=== PATIENT | male | born 1940 | race Caucasian/White ===

== ENCOUNTER 2025-01-21 08:10 | Inpatient (IN) | payer MEDICARE ==
[~2025-01-21] VITALS: Ht 175.3 cm; Wt 93.1 kg
[2025-01-21 08:42] LABS: BASOPHILS 1.2 % (0-2); EOSINOPHILS 8.8 % (0-6); HEMATOCRIT 40.5 % (35.0-50.0); HEMOGLOBIN 14.2 g/dL (12.0-18.0); LYMPHOCYTES 23.2 % (24-44); MCH 31.8 (27-36); MCV 90.8 fl (81-99); MONOCYTES 6.4 % (0-12); NEUTROPHILS 60.4 % (39-80); PLATELET COUNT 146 K/uL (140-440); RBC 4.46 M/ul (4.3-5.7); RDW 13.9 (10.5-15.0)
[2025-01-21 09:02] LABS: ALBUMIN 3.7 g/dL (3.4-5.0); ALBUMIN/GLOBULIN RATIO 0.97 (1.1-2.4); ANION GAP 10.2 (7-21); BILIRUBIN, TOTAL 0.7 mg/dL (0.2-1.0); BUN/CREATININE RATIO 16.23 (6.0-28.6); CALCIUM 8.8 mg/dL (8.5-10.1); CREATININE, SERUM 1.17 mg/dL (0.70-1.30); POTASSIUM 4.2 mmol/L (3.5-5.1); PROTEIN, TOTAL 7.5 g/dL (6.4-8.2)
[2025-01-21] MEDS ORDERED: CARVEDILOL12.5 MG PO (09:04)
[2025-01-21] MEDS ORDERED: AMLODIPINE BESYL5 MG PO (09:04)
[2025-01-21] MEDS ORDERED: WIXELA 250-501 EACH INH (09:04)
[2025-01-21] MEDS ORDERED: FINASTERIDE5 MG PO (09:04)
[2025-01-21] MEDS ORDERED: ATORVASTATIN CA80 MG PO (09:04)
[2025-01-21] MEDS ORDERED: bisacodyL 10 MG SUPP PR PRN (11:30)
[2025-01-21] MEDS ORDERED: ACETAMINOPHEN 325 MG TAB PO PRN (11:30)
[2025-01-21] MEDS ORDERED: ondansetron HCL 4 MG/2 ML VIAL IV PRN (11:30)
[2025-01-21] MEDS ORDERED: GLUCAGON,HUMAN RECOMBINANT 1 MG/ML VIAL SUB-Q PRN (11:30)
[2025-01-21] MEDS ORDERED: DEXTROSE 5% 1,000 ML IV PRN (11:30)
[2025-01-21] MEDS ORDERED: IBLOOD GLUCOSE TEST STRIP 1 EA TEST XX PRN (11:30)
[2025-01-21] MEDS ORDERED: DEXTROSE 50% 50 ML SYR IV PRN ×2 (11:30)
[2025-01-21] MEDS ORDERED: PHARMACY RENAL DOSE ADJUSTMENT 1 DOSE MISC PO SCH (12:00)
[2025-01-21] MEDS ORDERED: INSULIN LISPRO 100 UNIT/ML ML SUB-Q SCH (12:00)
[2025-01-21] MEDS ORDERED: IBLOOD GLUCOSE TEST STRIP 1 EA TEST VI SCH (12:00)
[2025-01-21 12:28] LABS: CHOLESTEROL/HDL RATIO 2.3; TSH, 3RD GENERATION 2.228 uIU/mL (0.358-3.740)
[2025-01-21 12:31] VITALS: BP 179/87
--- NOTE | 2025-01-21 13:26 | NUR ---
Patient arrived to the medical floor. Patient awake, expressive aphasia noted. Patient able to walk to unit bed, he is a bit unsteady on feet. Right sided weakness noted. Patient's at bedside. Oriented patient to room and call light. Bed alarm intact.
--- NOTE | 2025-01-21 13:59 | NUR ---
THIS RN PRESENT TO ASSIST WITH TUG BOAT CAPTAIN WITH BUBBLE STUDY. PT TOLERATED PROCEDURE WELL. PRESENT AT BEDSIDE. NO OTHER NEEDS, TUG BOAT CAPTAIN REMAINS IN ROOM TO COMPLETE REMAINING PROCEDURE.
[2025-01-21 14:32] VITALS: BP 179/87
--- NOTE | 2025-01-21 14:40 | NUR ---
WORKING WITH PT. SPOUSE, HERMILO, IN ROOM. PATIENT LIVES WITH IN SINGLE LEVEL HOME WITH 1 STEP TO GET INSIDE. HE HAS ONLY A NEBULIZER FOR DME. PRIOR TO LAST NIGHT, HE WAS ABLE TO DRIVE AND JUST DROVE APPROXIMATELY [address] WITH HIS . HERMILO DENIES ANY FINANCIAL ISSUES. DISCUSSED DC PLANNING AND WILL ESTABLISH PLAN BASED ON FURTHER EVALS TO BE COMPLETED. VERBALIZES UNDERSTANDING. CURRENTLY PLANNING TO TAKE PATIENT HOME WHEN MEDICALLY CLEARED, BUT WILL NEED THERAPIES TO EVAL AND RECOMMEND WHAT PATIENT WILL NEED. PCP IS DR. BENNY SEGUNDO AT [facility] PREFERRED PHARMACY IS [facility] IN [facility] IN [place], [place].
[2025-01-21 14:54] VITALS: BP 173/81
[2025-01-21] MEDS ORDERED: CLOPIDOGREL BISULFATE 75 MG TAB PO SCH (14:57)
[2025-01-21] MEDS ORDERED: ASPIRIN 81 MG CHEW PO SCH (14:58)
[2025-01-21] MEDS ORDERED: MELATONIN10 M2 PO (16:38)
--- NOTE | 2025-01-21 16:39 | NUR ---
medications reconciled using pharmacy records and patient/patient's interview
[2025-01-21] MEDS ORDERED: ALBUTEROL SULFATE 0.083% 3 ML VIAL INH PRN (17:30)
--- NOTE | 2025-01-21 19:05 | NUR ---
REPORT RECEIVED FROM ROBERT ALBERTO. pt RESTING IN THE BED. BOARD UPDATED. pt DENIES ANY OTHER NEEDS AT THIS TIME. CALL LIGHT WITHIN REACH.
[2025-01-21] MEDS ORDERED: BUDESONIDE 0.5 MG/2 ML VIAL INH SCH (20:00)
[2025-01-21] MEDS ORDERED: MELATONIN 3 MG TAB PO PRN (21:00)
[2025-01-21] MEDS ORDERED: ATORVASTATIN 40 MG TAB PO SCH (21:00)
[2025-01-21 21:20] VITALS: BP 172/82
--- NOTE | 2025-01-21 21:20 | NUR ---
ASSESSMENT AND VITAL SIGNS DONE. pt A&O TO SELF AND DATE. PUPILS ARE PIN-POINT AND SLOW TO RESPOND. TELE #6 ON. BLOOD SUGAR CHECK DONE WITH A RESULTS OF 101. NO SS INSULIN NEEDED. SCHEDULED MEDS ADMISTERED. pt DENIES ANY OTHER NEEDS AT THIS TIME. CALL LIGHT WITHIN REACH.
[2025-01-21 21:22] VITALS: BP 172/82
--- NOTE | 2025-01-21 21:54 | NUR ---
COUCH SET UP FOR BED FOR HERMILO SHE PLANS TO STAY THE NIGHT WITH pt. ROOM TIDIED AND THIS RN ASSISTED PRIMARY RN WITH COLLECTING VS AND I&O'S. pt THEN AMBULATED SBA WITH THIS RN AND MADE ONE LAP IN HALLWAY, STEADY ON FEET W/O ASSISTIVE DEVICES. pt BRUSHED TEETH, VOIDED 425MLS AND BACK IN BED, WARM BLANKET PROVIDED. BED ALARM RESUMED AND CALL LIGHT IN REACH. OTHER FAMILY MEMBERS PREPARING TO LEAVE FOR THE EVENING. PRN MELATONIN GIVEN PER pt/ REQUEST, NO ADDITIONAL NEEDS OR CONCERNS. CALL LIGHT IN REACH.
--- NOTE | 2025-01-21 23:49 | NUR ---
pt RESTING IN THE BED WITH EYES CLOSED. RR EVEN AND UNLABORED. CALL LIGHT WITHIN REACH. NO OTHER NEEDS AT THIS TIME.
[2025-01-22] VITALS (11 sets, daily range): BP systolic 150–176; BP diastolic 78–90
--- NOTE | 2025-01-22 00:35 | NUR ---
pt RESTING IN THE BED WITH EYES CLOSED. RR EVEN AND UNLABORED. CALL LIGHT WITHIN REACH.
--- NOTE | 2025-01-22 01:49 | NUR ---
IN RM TO DO VITAL SIGNS. pt DENIES ANY NEEDS AT THIS TIME. CALL LIGHT WITHIN REACH.
--- NOTE | 2025-01-22 04:21 | NUR ---
IN RM TO CHECK ON pt. pt REQUEST TO GO TO THE BR. SBA. pt REQUESTED TO GO ON A WALK. pt WALKED 4 LAPS AROUND THE MED/SURG FLOOR. pt DENIES ANY OTHER NEEDS AT THIS TIME. CALL LIGHT WITHIN REACH. BED ALARM ON.
[2025-01-22 05:25] LABS: BASOPHILS 0.8 % (0-2); EOSINOPHILS 7.2 % (0-6); HEMATOCRIT 38.7 % (35.0-50.0); HEMOGLOBIN 13.3 g/dL (12.0-18.0); LYMPHOCYTES 25.1 % (24-44); MCH 31.5 (27-36); MCHC 34.4 g/dl (30-36); MCV 91.6 fl (81-99); MONOCYTES 7.6 % (0-12); NEUTROPHILS 59.3 % (39-80); PLATELET COUNT 135 K/uL (140-440); RBC 4.23 M/ul (4.3-5.7); RDW 13.9 (10.5-15.0)
[2025-01-22 05:44] LABS: ALBUMIN 3.4 g/dL (3.4-5.0); ALBUMIN/GLOBULIN RATIO 0.97 (1.1-2.4); ANION GAP 10.7 (7-21); BILIRUBIN, TOTAL 0.7 mg/dL (0.2-1.0); CALCIUM 8.8 mg/dL (8.5-10.1); MAGNESIUM 1.9 mg/dL (1.8-2.4); POTASSIUM 3.7 mmol/L (3.5-5.1); PROTEIN, TOTAL 6.9 g/dL (6.4-8.2)
--- NOTE | 2025-01-22 07:05 | NUR ---
REPORT RECEIVED FROM DOLLY HOLM. PATIENT RESTING IN BED AWAKE AND ALERT WITH AT BEDSIDE. BOTH REQUESTING COFFEE - PROVIDED. NO OTHER REQUESTS, CALL LIGHT IN REACH.
--- NOTE | 2025-01-22 08:14 | EKG ---
[facility] [address] [place], [place] [address] Signed Sinus bradycardia with 1st degree AV block Left ventricular hypertrophy with QRS widening ( R in aVL , Bettendorf product ) Nonspecific ST and T wave abnormality Abnormal ECG No previous ECGs available Confirmed by Demetrice Sim DO ([id number]) on 01/22/2025 8:14:13 AM Electronically Signed By: DEMETRICE SIM DO 01/22/25 0814 PATIENT NAME: ALYSE SU Electrocardiogram DATE OF : 40 PHYSICIAN: DEMETRICE SIM DO REPORT #: [id number] REPORT IS CONFIDENTIAL AND NOT TO BE RELEASED WITHOUT AUTHORIZATION
--- NOTE | 2025-01-22 09:10 | NUR ---
INTO SEE PATIENT. FAMILY AT BEDSIDE. PATIENT SAYS HE HAS HAD GREAT CARE HERE SO FAR. PATIENT WILL GO HOME WITH AT TIME OF DISCHARGE. NO FUTHER CM NEEDS AT THIS TIME OR QUESTIONS.
--- NOTE | 2025-01-22 09:25 | NUR ---
PRESENT IN ROOM.
--- NOTE | 2025-01-22 09:49 | NUR ---
PATIENT IS UP AND AMBULATING IN THE HALLS WITH REYES MEJIA. PATIENT IS STEADY ON HIS FEET AND WALKING AT A BRISK PACE.
--- NOTE | 2025-01-22 11:22 | NUR ---
ASSESSMENT COMPLETE, PATIENT RESTING IN RECLINER WITH MULTIPLE FAMILY MEMBERS PRESENT. NIH 2 FOR SPEECH PATTERN/EXPRESSIVE APHASIA, PATIENT AND PATIENT FAMILY BOTH FEEL PATIENT'S SPEECH IS IMPROVING. NO WEAKNESS NOTED TO PATIENT'S ARMS OR LEGS. PATIENT HAS BEEN AMBULATING FREQUENTLY THIS MORNING WITH NURSING STAFF AND PHYSICAL THERAPY WITH A STEADY GAIT. PATIENT HAS NO REPORTS OF PAIN OR DISCOMFORT. NO REQUESTS. CALL LIGHT AND PERSONAL BELONGINGS IN REACH.
--- NOTE | 2025-01-22 11:36 | NUR ---
AFTER PATIENT WAS DONE IN THE BATHROOM BRUSHING HIS TEETH. GOT CHAIR SET UP FOR HIM TO SIT IN FOR BREAKFAST. FAMILY IN ROOM. BED LINENS CHANGED.
--- NOTE | 2025-01-22 11:45 | NUR ---
UR CLINICAL REVIEW: [facility], MEETS INPT FOR ISCHEMIC STROKE APHASIA, CONFUSION, NIH OF 3, POSITIVE MRI FOR CVA [facility] INPT 01/21/2025 @ 1142 ORDER MATCHES REG AUTHORIZED INPT STAY. AUTH #[id number], REQUESTING CLINICALS, WILL SEND CLINICALS VIA [facility] TODAY. DC PLAN PENDING TREATMENT AND EVAL 01/24/25
--- NOTE | 2025-01-22 13:13 | NUR ---
VISITED DURING SPIRITUAL CARE ROUNDS. PT SUPPORTED BY DAUGHTERS IN ROOM. ALL IN OVERALL GOOD SPIRITS, RELAYED INFORMATION FROM CARE TEAM, EXPRESSED SATISFACTION WITH CARE, HOPE FOR RECOVERY, DETERMINATION, DESIRE FOR WALK AROUND THE HALLS. ALTERATIONS TAILOR PROVIDED SUPPORTIVE PRESENCE, HOSPITALITY, PRAYER, ADVOCATED FOR PT TO RECEIVE WALK WITH NURSING TEAM.
--- NOTE | 2025-01-22 15:42 | NUR ---
PATIENT WALKED THREE LAPS AROUND MED SURG WITH HIS FAMILY. AND FOUR LAPS AFTER LUNCH WITH HIS FAMILY.
--- NOTE | 2025-01-22 17:00 | NUR ---
PATIENT WITH MULTIPLE VISITORS IN THE ROOM, CONVERSES PLEASANTLY WITH THIS RN. EXPRESSIVE APHASIA CONTINUES TO IMPROVE. PATIENT REPORTS FEELING AWARE THAT HIS SPEECH IS GETTING SMOOTHER WELL. PATIENT FAMILY MEMBERS AGREEABLE. NO REQUESTS, CALL LIGHT AND PERSONAL BELONGINGS IN REACH.
[2025-01-22 18:11] LABS: THYROXINE FREE 1.1 ng/dL (0.9-1.7)
--- NOTE | 2025-01-22 19:05 | NUR ---
REPORT RECEIVED FROM TODD ALBERTO. pt WALKING IN THE HALLS WITH HIS FAMILY. NO OTHER NEEDS AT THIS TIME. CALL LIGHT WITHIN REACH.
--- NOTE | 2025-01-22 21:15 | NUR ---
ASSESSMENT AND VITAL SIGNS DONE. FAMILY IN RM. pt A&O X4. pt RESTING IN THE BED. pt HAS SOME DIFFICULTY FINDING WORDS. pt DENIES ANY OTHER NEEDS AT THIS TIME. CALL LIGHT WITHIN REACH. SCHEDULED AND PRN MEDS ADMINISTERED. WATER REFRESHED.
--- NOTE | 2025-01-22 23:30 | NUR ---
pt RESTING IN THE BED WITH EYES CLOSED. RR EVEN AND UNLABORED. CALL LIGHT WITHIN REACH.
[2025-01-23] VITALS (10 sets, daily range): BP systolic 139–164; BP diastolic 88–96
--- NOTE | 2025-01-23 01:24 | NUR ---
pt RESTING IN THE BED WITH EYES CLOSED. RR EVEN AND UNLABORED. CALL LIGHT WITHIN REACH.
--- NOTE | 2025-01-23 03:43 | NUR ---
pt RESTING IN THE BED WITH EYES CLOSED. RR EVEN AND UNLABORED. CALL LIGHT WITHIN REACH.
[2025-01-23 05:24] LABS: EOSINOPHILS 5.8 % (0-6); HEMATOCRIT 40.6 % (35.0-50.0); HEMOGLOBIN 14.1 g/dL (12.0-18.0); LYMPHOCYTES 29.1 % (24-44); MCH 31.6 (27-36); MCHC 34.8 g/dl (30-36); MCV 90.8 fl (81-99); MONOCYTES 8.8 % (0-12); NEUTROPHILS 55.3 % (39-80); PLATELET COUNT 138 K/uL (140-440); RBC 4.47 M/ul (4.3-5.7); RDW 14.1 (10.5-15.0)
--- NOTE | 2025-01-23 05:25 | NUR ---
TERRAZZO JOURNEYMAN OBTAINED VITALS AND I&O. PT STATES NO NEEDS AT THIS TIME. CALL LIGHT WITHIN REACH AND IN ROOM.
[2025-01-23 05:34] LABS: BUN/CREATININE RATIO 19.38 (6.0-28.6); CALCIUM 8.9 mg/dL (8.5-10.1); CREATININE, SERUM 0.98 mg/dL (0.70-1.30); MAGNESIUM 2.1 mg/dL (1.8-2.4)
--- NOTE | 2025-01-23 06:10 | NUR ---
pt SITTING UP TO DRINK SOME COFFEE. ASSESSMENT AND VITAL SIGNS DONE. pt DENIES ANY OTHER NEEDS AT THIS TIME. CALL LIGHT WITHIN REACH.
--- NOTE | 2025-01-23 07:09 | NUR ---
REPORT RECEIVED FROM DOLLY HOLM. PATIENT AWAKE AND ALERT IN THE RECLINER READING AN ARTICLE ON HIS PHONE OUTLOUD PRACTICE. PATIENT REPORTS HE WILL PROBABLY GO FOR A WALK WITH HIS SOON. NO REQUESTS, CALL LIGHT AND PERSONAL BELONGINGS IN REACH.
--- NOTE | 2025-01-23 08:09 | NUR ---
MEDICATION ADMINISTERED, SEE MAR. ASSESSMENT COMPLETE. PATIENT'S EXPRESSIVE APHASIA CONTINUES TO IMPROVE, PATIENT REACHES FOR APPROXIMATELY 4 WORDS DURING A 10-MINUTE CONVERSATION. PATIENT IS IN THE RECLINER READING THE NEWSPAPER ALOUD TO HIS PRACTICE. PATIENT EXPRESSES EXCITEMENT IN GOING HOME TOMORROW, OUTLINES THE FULL PLAN FOR CONTINUING CARE OVER THE NEXT WEEK. FULLY ALERT AND ORIENTED. REYES BURNS ARRIVES TO CHANGE BED LINENS. PATIENT HAS NO REQUESTS, CALL LIGHT AND PERSONAL BELONGINGS IN REACH, PRESENT AT CHAIRSIDE THROUGHOUT AND REYES BURNS REMAINS IN ROOM.
--- NOTE | 2025-01-23 08:45 | NUR ---
PT BED LINENS CHANGED, PT IN CHAIR EATING BREAKFAST, FAMILY PRESENT IN ROOM, PT IN GOOD MOOD, LAUGHING AND TALKING BATHROOM READY FOR SHOWER
--- NOTE | 2025-01-23 09:05 | NUR ---
ASSISTED PATIENT IN WRAPPING HIS IV FOR SHOWER, GOT A FRESH GOWN AND TOWELS. FAMILY IN ROOM, CALL LIGHT WITH IN REACH AND NOTHING ELSE NEEDED AT THIS TIME.
[2025-01-23] MEDS ORDERED: AMLODIPINE BESYLATE 5 MG TAB PO SCH (09:41)
[2025-01-23] MEDS ORDERED: FINASTERIDE 5 MG TAB PO SCH (09:52)
[2025-01-23] MEDS ORDERED: PANTOPRAZOLE SODIUM 40 MG TABEC PO SCH (09:53)
--- NOTE | 2025-01-23 11:30 | NUR ---
CALLED [facility] THEY HAVE A THERAPIST THAT SPECIALIZES IN STROKE REHAB. PATIENT HAS BEEN TO THE CLINIC BEFORE. REFFERAL SENT. IMM LETTER COMPLETED AT 1115. PATIENT TO GO HOME WITH FAMILY WHEN MEDICALL CLEARED NO OTHER CM NEEDS AT THIS TIME.
--- NOTE | 2025-01-23 12:15 | NUR ---
PT WAS ABLE TO WALK INTO THE BATHROOM FROM HIS BEDSIDE, SHOWER AND WITH FAMILY HELP, PUT ON NEW ROBE AND RETURNED TO CHAIR PT HAS CALL LIGHT WITHIN REACH AND FAMILY IN THE ROOM PT EATING LUNCH NO OTHER ASSISTANCE NEEDED AT THIS TIME
--- NOTE | 2025-01-23 12:57 | NUR ---
PATIENT SITTING UP IN CHAIR WITH MULTIPLE FAMILY PRESENT. NO REQUESTS, CALL LIGHT AND PERSONAL BELONGINGS IN REACH.
--- NOTE | 2025-01-23 13:41 | NUR ---
PT SITTING WITH FAMILY GOOD MOOD CALL LIGHT WITHIN REACH NO FURTHER NEEDS AT THIS TIME
--- NOTE | 2025-01-23 16:12 | NUR ---
PATIENT UP IN RECLINER VISITING WITH MULTIPLE FAMILY MEMBERS. THIS RN STAYS IN ROOM FOR APPROXIMATELY 15 MINUTES HAVING CONVERSATIONS. PATIENT MAKES VERY RARE ERRORS IN SPEECH, MOSTLY WORD-SEARCHING, NO WORD-SALAD NOTED. PATIENT IS MILDLY EMOTIONAL ABOUT HOPEFULLY GOING HOME TOMORROW, HE IS "JUST SO HAPPY AND PLEASED". PATIENT HAS NO REQUESTS, CALL LIGHT AND PERSONAL BELONGINGS IN REACH.
--- NOTE | 2025-01-23 18:03 | NUR ---
PATIENT'S URINAL EMPTIED AND RECORDED. PATIENT RESTING IN RECLINER WITH AT CHAIRSIDE. NO REQUESTS, CALL LIGHT AND PERSONAL BELONGINGS IN REACH.
--- NOTE | 2025-01-23 19:05 | NUR ---
REPORT RECEIVED FROM TODD ALBEROT. pt SITTING IN THE CHAIR WITH FAMILY IN THE . BOARD UPDATED. pt DENIES ANY OTHER NEEDS AT THIS TIME. CALL LIGHT WITHIN REACH.
--- NOTE | 2025-01-23 21:15 | NUR ---
ASSESSMENT AND VITAL SIGNS DONE. SCHEDULED MEDS ADMINISTERD. PRN MEDS ADMINISTERED. A&O X4. IV ASSESSED, WNL. pt DENIES ANY OTHER NEEDS AT THIS TIME. CALL LIGHT WITHIN REACH.
--- NOTE | 2025-01-23 23:07 | NUR ---
pt RESTING IN THE BED WITH EYES CLOSED. RR EVEN AND UNLABORED. CALL LIGHT WITHIN REACH.
--- NOTE | 2025-01-24 01:49 | NUR ---
pt RESTING IN THE BED WITH EYES CLOSED. RR EVEN AND UNLABORED. CALL LIGHT WITHIN REACH.
--- NOTE | 2025-01-24 03:36 | NUR ---
pt RESTING IN THE BED WITH EYES CLOSED. RR EVEN AND UNLABORED. CALL LIGHT WITHIN REACH.
[2025-01-24 05:24] VITALS: BP 134/94
[2025-01-24 05:47] VITALS: BP 134/94
--- NOTE | 2025-01-24 05:48 | NUR ---
pt RESTING IN THE BED. VITAL SIGNS AND ASSESSMENT DONE. pt DENIES ANY OTHER NEEDS AT THIS TIME. CALL LIGHT WITHIN REACH. pt A&O X4.
--- NOTE | 2025-01-24 07:00 | NUR ---
REPORT RECEIVED FROM DOLLY HOLM. PATIENT AWAKE AND ALERT IN THE RECLINER WITH AT BEDSIDE. NO REQUESTS, CALL LIGHT AND PERSONAL BELONGINGS IN REACH.
--- NOTE | 2025-01-24 07:29 | NUR ---
MD IN TO ASSESS AND VISIT PATIENT. PATIENT HAS BEGUN PACKING HIS BAGS, HE IS EXCITED TO GO HOME TODAY. MD ANSWERS ALL QUESTIONS AND ADDRESSES ALL CONCERNS. PATIENT HAS NO REQUESTS, CALL LIGHT AND PERSONAL BELONGINGS IN REACH.
[2025-01-24] MEDS ORDERED: ELIQUIS5 MG PO (07:35)
[2025-01-24] MEDS ORDERED: CLOPIDOGREL75 MG PO (07:37)
[2025-01-24] MEDS ORDERED: ASPIRIN81 MG PO (07:39)
[2025-01-24 07:47] VITALS: BP 124/98
[2025-01-24 07:54] VITALS: BP 124/98
--- NOTE | 2025-01-24 08:08 | NUR ---
MEDICATION ADMINISTERED, SEE MAR. ASSESSMENT COMPLETE. PATIENT'S FINAL NIH IS A 1. PATIENT EXPRESSES EXCITEMENT IN LEAVING. IV TO PATIENT'S L AC REMOVED AT THIS TIME. PATIENT BEGINS GETTING DRESSED INDEPENDENTLY. NO REQUESTS, CALL LIGHT AND PERSONAL BELONGINGS IN REACH.
--- NOTE | 2025-01-24 08:42 | NUR ---
PATIENT IS CURRENTLY SITTING UP IN THEIR CHAIR WITH IN THE ROOM. DOLLY BROOKS IN THE ROOM GOING OVER DISCHARGE ORDERS.
[2025-01-24] MEDS ORDERED: APIXABAN 5 MG TAB PO SCH (09:00)
== END 2025-01-24 09:50 | disposition home or self-care (01) | DRG 66 ==
LOC: ED 08:10 → MS 12:10
PROVIDERS: Emergency Medicine; ADMIT Student in an Organized Health Care Education/Training Program; ATTEND Student in an Organized Health Care Education/Training Program
DX: I63.512 Cerebral infarction due to unspecified occlusion or stenosis of left middle cerebral artery (principal); I10 Essential (primary) hypertension; N40.0 Benign prostatic hyperplasia without lower urinary tract symptoms; I48.91 Unspecified atrial fibrillation; G47.33 Obstructive sleep apnea (adult) (pediatric); R47.81 Slurred speech; E78.5 Hyperlipidemia, unspecified; Z79.899 Other long term (current) drug therapy; R29.703 NIHSS score 3; Z87.891 Personal history of nicotine dependence; Z66 Do not resuscitate; R73.9 Hyperglycemia, unspecified
CPT/HCPCS: 36415; 70450; 70496; 70498; 70551; 80048; 80053; 80061; 83036; 83735; 84439; 84443; 84484; 85025; 92507; 92523; 92610; 93005; 93010; 93306; 94640; 94760; 94799; 97112; 97162; 97166; 97530; A9270; Q9967